=== PATIENT | female | born 1970 | race Caucasian/White ===

== ENCOUNTER 2017-11-06 20:54 | Emergency (ER) | payer OTHER ==
[2017-11-06] MEDS ORDERED: LORazepam 2 MG/ML INJ IVP ONE (21:31)
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
[2017-11-06] MEDS ORDERED: NS 1,000 ML IV ONE (23:04)
[2017-11-06] MEDS ORDERED: IOPAMIDOL (ISOVUE-300) 100 ML BTL ONE (23:04)
[2017-11-07 00:52] VITALS: BP 121/82
--- NOTE | 2017-11-09 10:30 | ASDISCHSUM ---
Discharge Information Plan Status:Home with No Needs Medically Cleared to Leave: Discharge Date:11/07/2017 01:05 AM CM D/C Disposition:Home, Routine, Self-Care ADT D/C Disposition:Home, Routine, Self-Care Projected Discharge Date:11/07/2017 01:05 AM Transportation at D/C:Family Discharge Delay Reason: Follow-Up Date:11/07/2017 01:05 AM Discharge Slot: Final Diagnosis: Placement Information Patient Contact Information Contact Name:MISTY Relationship: Address:[address] Home Phone: City:[place] Alternate Phone: [facility]/Zip Code:[place] [address] Email: Financial Information Financial Class:Commercial Primary Plan Desc:[employer] Primary Plan Number:[id number] Secondary Plan Desc:WE CARE Secondary Plan Number:[id number] Assessment Information [facility] CM Progress Note CM Note CM Note Notes: Received a note from the overnight ED provider, requesting to assist patient with followup care coordination. Patient is followed by Bebeto Mcgill at [facility] in [place] ([phone]); called their backline ([phone]) and spoke with an RN re:pt needing follow up as soon as possible this week and an outpatient CTA of her abdomen and pelvis; the RN said she will look into scheduling patient and will contact patient directly today. This CM provided ED CM # for any further questions or needed assistance. Date Signed: 11/09/2017 10:28 AM Electronically Signed By:Karla Angela RN Intervention Information Intervention Type:Post Acute Communication Date of Service:11/09/2017 10:28 AM Patient Type:Emergency Room Staff Member:YUAN Angela Sharon Hours:0.5 Discipline:Betting [employer] Counter Clerk Severity: Comment:Contacted pt's PCP at [facility] in [facility] re: follow-up appts and outpt CTA
== END 2017-11-07 01:05 | disposition home or self-care (01) ==
LOC: EDUNIT#
DX: S39.012A Strain of muscle, fascia and tendon of lower back, initial encounter (principal); S50.02XA Contusion of left elbow, initial encounter; I72.2 Aneurysm of renal artery; I10 Essential (primary) hypertension; E86.9 Volume depletion, unspecified; V49.50XA Passenger injured in collision with unspecified motor vehicles in traffic accident, initial encounter; Y92.410 Unspecified street and highway as the place of occurrence of the external cause
CPT/HCPCS: 82947-QW; 96374; J1200; J2060; Q9967